=== PATIENT | male | born 1945 ===

== ENCOUNTER 2017-11-13 13:18 | Emergency (ER) | payer OTHER ==
[~2017-11-13] VITALS: Ht 154.9 cm; Wt 61.2 kg
== END 2017-11-13 14:58 | disposition home or self-care (01) ==
LOC: ER 13:18
DX: S61.412A Laceration without foreign body of left hand, initial encounter (principal); W45.8XXA Other foreign body or object entering through skin, initial encounter; Y93.89 Activity, other specified; Y92.69 Other specified industrial and construction area as the place of occurrence of the external cause; Y99.8 Other external cause status